=== PATIENT | male | born 1995 | race Two or more races ===

== ENCOUNTER 2021-11-07 07:35 | Emergency (ER) | payer MEDICAID ==
[~2021-11-07] VITALS: Ht 188 cm; Wt 121.1 kg
[2021-11-07 10:44] VITALS: BP 144/87
[2021-11-07] MEDS ORDERED: TETANUS-DIPTH-ACEL PERTUSSIS 0.5ML SYR Tdap IM ONE (11:00)
== END 2021-11-07 11:41 | disposition home or self-care (01) ==
LOC: ER 07:35
DX: S62.633A Displaced fracture of distal phalanx of left middle finger, initial encounter for closed fracture (principal); J45.909 Unspecified asthma, uncomplicated; W22.8XXA Striking against or struck by other objects, initial encounter; Y93.89 Activity, other specified; Y92.091 Bathroom in other non-institutional residence as the place of occurrence of the external cause; Y99.8 Other external cause status
CPT/HCPCS: 29130; 73130; 90471; 90715

== ENCOUNTER 2022-09-16 08:03 | Emergency (ER) | payer MEDICAID ==
[~2022-09-16] VITALS: Ht 175.3 cm; Wt 122.1 kg
[2022-09-16 08:35] VITALS: BP 115/75
[2022-09-16] MEDS ORDERED: CEPH-510 PO (08:53)
== END 2022-09-16 09:00 | disposition home or self-care (01) ==
LOC: ER 08:03
DX: L60.0 Ingrowing nail (principal); J45.909 Unspecified asthma, uncomplicated; Z79.899 Other long term (current) drug therapy